=== PATIENT | male | born 1965 | race Two or more races ===

== ENCOUNTER 2018-08-03 08:29 | Outpatient (CLI) | payer OTHER ==
[~2018-08-03 08:29] MED LIST: HUMIRA PEN40 MG/0.1
== END 2018-08-03 14:21 | disposition home or self-care (01) ==
LOC: NUCLEAR 08:29
DX: M06.4 Inflammatory polyarthropathy (principal)
CPT/HCPCS: 78315; A9503

== ENCOUNTER 2018-11-01 11:06 | Outpatient (CLI) | payer OTHER | END 2018-11-01 11:09 | disposition home or self-care (01) | LOC: RAD 11:06 | DX: J44.9 Chronic obstructive pulmonary disease, unspecified (principal) ==